=== PATIENT | female | born 1960 | race Caucasian/White ===

== ENCOUNTER 2016-11-18 18:01 | Emergency (ER) | payer OTHER ==
[2016-11-18 18:10] VITALS: TEMP 97.7
--- NOTE | 2016-11-18 18:21 | EDPHY ---
H & P Time Seen by Provider: 11/18/16 18:09 HPI/ROS: CHIEF COMPLAINT: Left ankle pain HISTORY OF PRESENT ILLNESS: The patient presents to the ED with complaints of left ankle pain and swelling after she rolled her ankle while hiking. The patient complains of pain to both the medial and lateral aspects of her ankle. The patient denies additional injury aside from an abrasion to her knee cap. REVIEW OF SYSTEMS: A comprehensive 10 point review of systems is otherwise negative aside from elements mentioned in the history of present illness. Source: Patient - Personal History LMP (Females 10-55): Now - Medical/Surgical History Hx Asthma: No Hx Chronic Respiratory Disease: No Hx Diabetes: No Hx Cardiac Disease: No Hx Renal Disease: No Hx Cirrhosis: No Hx Alcoholism: No Hx HIV/AIDS: No Hx Splenectomy or Spleen Trauma: No Other PMH: PARTIAL HYSTERCTOMY - Social History Smoking Status: Never smoked - Physical Exam Exam: General appearance: alert no distress Left ankle: There is swelling and tenderness over the medial and lateral malleolus. Ankle joint is stable and there is no tenderness over the Achilles tendon. The foot is nontender without swelling. Neurologic exam: The patient has normal sensation and motor function distal to the injury. Vascular exam: Normal pulses and capillary refill in the foot DIFFERENTIAL DIAGNOSIS: After history and physical exam differential diagnosis was considered for ankle injury including sprain, fracture, dislocation and soft tissue injury. Constitutional: Initial Vital Signs Temperature (C) 36.5 C 11/18/16 18:08 Heart Rate 85 11/18/16 18:08 Respiratory Rate 16 11/18/16 18:08 Blood Pressure 158/106 H 11/18/16 18:08 O2 Sat (%) 94 11/18/16 18:08 O2 Delivery Mode Room Air Allergies/Adverse Reactions: No Known Allergies Allergy (Unverified 02/24/13 15:08) Home Medications: Medication Instructions Recorded Hormone Replacement 09/05/10 Medical Decision Making - Diagnostics Imaging Results: Left ankle x-ray: Images reviewed by myself, small avulsion type fracture off medial malleolus, no surgical fracture noted. ED Course/Re-evaluation: The patient presents to the emergency department with left ankle pain and swelling following an inversion injury. Patient has a incidental small avulsion consistent with a strain. The patient will be placed in a Armas boot. She is advised to follow up with our on-call orthopedic surgeon in 7-10 days for any pain, immobility or other concerns. The patient should weightbear as tolerated. She is provided crutches. She will be discharged home with a prescription for ibuprofen. Departure - Departure Disposition: Home, Routine, Self-Care Clinical Impression: Ankle sprain Qualifiers: Encounter type: initial encounter Involved ligament of ankle: other ligament Laterality: left Qualified Code(s): S93.492A - Sprain of other ligament of left ankle, initial encounter Condition: Good Instructions: Ankle Sprain (ED) Additional Instructions: 1. Take Ibuprofen or Motrin 600 mg by mouth three times a day. 2. Armas boot and crutches as needed. Weight bear as tolerated. 3. Follow up with the orthopedic surgeon you have been referred to for any persistent pain or swelling. Referrals: Jac Jacques MD [Medical Doctor] - As per Instructions
[2016-11-18 18:39] VITALS: BP 140/93; PULSE 72; RESP 20; O2SAT 97
== END 2016-11-18 18:48 | disposition home or self-care (01) ==
DX: S93.492A Sprain of other ligament of left ankle, initial encounter (principal); X58.XXXA Exposure to other specified factors, initial encounter; Y99.8 Other external cause status; Y93.01 Activity, walking, marching and hiking
CPT/HCPCS: L4386

== ENCOUNTER 2018-07-18 09:39 | Emergency (ER) | payer OTHER ==
[2018-07-18 09:47] VITALS: BP 135/87
[2018-07-18] MEDS ORDERED: TDAP ADULT 0.5 ML INJ (BOOSTRIX) IM ONE (10:02)
--- NOTE | 2018-07-18 10:08 | EDPHY ---
H & P Stated Complaint: R hand laceration Time Seen by Provider: 07/18/18 09:48 - Personal History Current Tetanus/Diphtheria Vaccine: Unsure Current Tetanus Diphtheria and Acellular Pertussis (TDAP): Unsure - Medical/Surgical History Hx Asthma: No Hx Chronic Respiratory Disease: No Hx Diabetes: No Hx Cardiac Disease: No Hx Renal Disease: No Hx Cirrhosis: No Hx Alcoholism: No Hx HIV/AIDS: No Hx Splenectomy or Spleen Trauma: No Other PMH: PARTIAL HYSTERCTOMY - Social History Smoking Status: Never smoked Constitutional: Initial Vital Signs Temperature (C) 36.5 C 07/18/18 09:46 Heart Rate 72 07/18/18 09:46 Respiratory Rate 18 07/18/18 09:46 Blood Pressure 135/87 H 07/18/18 09:46 O2 Sat (%) 95 07/18/18 09:46 O2 Delivery Mode Room Air Allergies/Adverse Reactions: No Known Allergies Allergy (Unverified 07/18/18 09:45) Home Medications: Medication Instructions Recorded Hormone Replacement 09/05/10 Ibuprofen 600 mg PO TID PRN #30 tablet 11/18/16 Medical Decision Making ED Course/Re-evaluation: CHIEF COMPLAINT: Right hand abrasion HISTORY OF PRESENT ILLNESS: 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 She slid down an irrigation ditch and abraded the palm of her right hand. She has normal movement and sensation in her fingers and wrist. She denies head strike or any other injuries. She is generally healthy. REVIEW OF SYSTEMS: A comprehensive 10 system review of systems is otherwise negative aside from elements mentioned in the history of present illness and medical decision making. PHYSICAL EXAM: HR, BP, O2 Sat, RR. Temp noted General Appearance: Alert, well hydrated, appropriate, and non-toxic appearing. Head: Atraumatic without scalp tenderness or obvious injury Eyes: Pupils equal, round, reactive to light and accommodation, EOMI, no trauma , no injection. Nose: Atraumatic, no rhinorrhea, clear. Throat: Mucus membranes moist. Neck: Supple, non-tender. Respiratory: No distress. Cardiovascular: Good capillary refill all extremities. Musculoskeletal: Normal active ROM of all extremities, right hand abrasion, otherwise atraumatic. Neurological: Alert, appropriate, and interactive. Nonfocal. Skin: No rashes, good turgor, no nodules on palpation. 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 Lives in [place]. DIFFERENTIAL DIAGNOSIS: The differential diagnosis for the patient's trauma included but was not limited to abrasion, contusion, strain, sprain, fracture. 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 No other trauma noted. Plan for wound care and tetanus booster. She will be discharged with standard care and follow up instructions. Return precautions discussed. She is comfortable with this plan. - Data Points Medications Given: Discontinued Medications Diphtheria/Tetanus/Acell Pertussis (Boostrix) 0.5 ml IM .ONCE ONE Stop: 07/18/18 10:03 Last Admin: 07/18/18 10:06 Dose: 0.5 ml Departure - Departure Disposition: Home, Routine, Self-Care Clinical Impression: Abrasion Condition: Good Instructions: Abrasion (ED), Tetanus (ED) Additional Instructions: 1. Keep wound clean and dry. 2. Apply a thin layer of Bacitracin to wound each day until healed. 3. Watch for signs of infection like severe pain, dramatic increase in redness, drainage from the site, fever, or other worsening of condition and return for reassessment if these occur. 4. Follow up with workman's comp clinic if needed/as directed by your HR department. Referrals: ANDREW VANG [Primary Care Provider] - As per Instructions Report Scribed for: Zack Costa Report Scribed by: Radha Padilla Date of Report: 07/18/18 Time of Report: 10:08
== END 2018-07-18 10:15 | disposition home or self-care (01) ==
DX: S60.511A Abrasion of right hand, initial encounter (principal); W19.XXXA Unspecified fall, initial encounter; Y92.9 Unspecified place or not applicable; Y93.9 Activity, unspecified; Y99.0 Civilian activity done for income or pay; Z23 Encounter for immunization